=== PATIENT | male | born 1970 | race Two or more races ===

== ENCOUNTER 2023-02-14 00:20 | Day surgery (SDC) | payer OTHER ==
[2023-02-14 00:29] VITALS: BMI 27.2
[2023-02-14] MEDS ORDERED: SODIUM CHLORIDE 0.9% 500 ML INFUS.BAG IV ONE (00:50)
[2023-02-14] MEDS ORDERED: KETOROLAC TROMETHAMINE 15 MG/ML VIAL IVPUSH ONE (00:51)
[2023-02-14] MEDS ORDERED: KETOROLAC TROMETHAMINE 15 MG/ML VIAL ONE (00:58)
[2023-02-14] MEDS ORDERED: ONDANSETRON 4 MG/2 ML VIAL IVPUSH ONE (01:10)
[2023-02-14 01:13] LABS: BASO % 0.5 % (0-2.0); EOS % 3.2 % (0-4.5); HEMATOCRIT 43.3 % (35.4-49); HEMOGLOBIN 14.9 GM/dL (11.7-16.9); LYMPH % 29.2 % (8-40); MCH 30.7 pg (25.7-33.7); MCHC 34.4 g/dl (32.0-35.9); MEAN CELL VOLUME 89.2 fl (80-96); MONO % 7.4 % (3.8-10.2); NEUT % 59.7 % (42.8-82.8); PLATELET COUNT 320 10^3/uL (134-434); RBC 4.85 M/mm3 (4.00-5.60); RDW 12.8 % (11.9-15.9); WHITE BLOOD COUNT 10.2 K/mm3 (4.0-10.0)
[2023-02-14] MEDS ORDERED: ONDANSETRON 4 MG/2 ML VIAL ONE (01:13)
[2023-02-14] MEDS ORDERED: ONDANSETRON *ODT* 4 MG TABLET ONE (01:14)
[2023-02-14 01:15] LABS: EPI CELLS 6 /uL (0-25.1); HYALINE CASTS 0 /uL (0-3.1); URINE APPEARANCE CLEAR; URINE BACTERIA 8 /uL (0-1359); URINE BILIRUBIN NEGATIVE (NEGATIVE); URINE COLOR YELLOW; URINE GLUCOSE (UA) NEGATIVE (NEGATIVE); URINE KETONE NEGATIVE (NEGATIVE); URINE LEUK ESTERASE NEGATIVE (NEGATIVE); URINE NITRITE NEGATIVE (NEGATIVE); URINE PROTEIN NEGATIVE (NEGATIVE); URINE RBC 1818 /uL (0-23.9); URINE UROBILINOGEN 0.2 mg/dL (0.2-1.0); URINE WBC 13 /uL (0-25.8)
[2023-02-14 01:34] LABS: POTASSIUM 4.7 mmol/L (3.5-5.1)
[2023-02-14 01:36] LABS: CALCIUM 8.9 mg/dL (8.5-10.1)
[2023-02-14 01:37] LABS: ALBUMIN 4.1 g/dl (3.4-5.0); BLOOD UREA NITROGEN 13.3 mg/dL (7-18)
[2023-02-14] MEDS ORDERED: ONDANSETRON *ODT* 4 MG TABLET SL ONE (01:38)
[2023-02-14 01:40] LABS: CREATININE 1.1 mg/dL (0.55-1.3)
[2023-02-14 01:41] LABS: BILIRUBIN,TOTAL 0.4 mg/dL (0.2-1)
[2023-02-14 01:42] LABS: TOT PROT 7.6 g/dl (6.4-8.2)
[2023-02-14] MEDS ORDERED: TAMSULOSIN HCL 0.4 MG CAP PO ONE (02:05)
[2023-02-14] MEDS ORDERED: TAMSULOSIN HCL 0.4 MG CAP ONE ×2 (02:09→08:42)
[2023-02-14] MEDS ORDERED: ACETAMINOPHEN 325 MG TABLET (FP) PO PRN (04:53)
[2023-02-14] MEDS ORDERED: SODIUM CHLORIDE 0.45% 1,000 ML IV SCH (05:00)
[2023-02-14] MEDS ORDERED: TAMSULOSIN HCL 0.4 MG CAP PO SCH (08:30)
[2023-02-14] MEDS ORDERED: CEFTRIAXONE 1 GM in DEXTROSE 5%-WATER - 50 ML IVPB SCH (10:00)
[2023-02-14] MEDS ORDERED: amLODIPine BESYLATE 5 MG TABLET (FP) PO SCH (10:00)
[2023-02-14] MEDS ORDERED: CEFTRIAXONE 1 GM/50 ML BAG ONE (10:13)
[2023-02-14] MEDS ORDERED: amLODIPine BESYLATE 5 MG TABLET (FP) ONE (10:13)
[2023-02-14 10:50] LABS: BASO % 0.2 % (0-2.0); EOS % 0.8 % (0-4.5); HEMATOCRIT 39.3 % (35.4-49); HEMOGLOBIN 13.9 GM/dL (11.7-16.9); MCH 31.2 pg (25.7-33.7); MCHC 35.4 g/dl (32.0-35.9); MEAN CELL VOLUME 88.2 fl (80-96); MEAN PLT VOLUME 7.9 fl (7.5-11.1); MONO % 5.4 % (3.8-10.2); NEUT % 74.6 % (42.8-82.8); PLATELET COUNT 247 10^3/uL (134-434); RBC 4.46 M/mm3 (4.00-5.60); RDW 13.1 % (11.9-15.9); WHITE BLOOD COUNT 8.1 K/mm3 (4.0-10.0)
[2023-02-14 10:53] LABS: INR 1.2 (0.83-1.09); PROTHROMBIN TIME (PATIENT) 13.9 SEC (9.7-13.0)
[2023-02-14 11:06] LABS: POTASSIUM 4.1 mmol/L (3.5-5.1)
[2023-02-14 11:11] LABS: ALBUMIN 3.7 g/dl (3.4-5.0); BLOOD UREA NITROGEN 10.7 mg/dL (7-18); CALCIUM 8.5 mg/dL (8.5-10.1); MAGNESIUM 2.2 mg/dL (1.8-2.4)
[2023-02-14 11:14] LABS: CREATININE 0.8 mg/dL (0.55-1.3); PHOSPHOROUS 3.1 mg/dL (2.5-4.9)
[2023-02-14 11:15] LABS: BILIRUBIN,TOTAL 0.5 mg/dL (0.2-1); TOT PROT 6.8 g/dl (6.4-8.2)
[2023-02-14] MEDS ORDERED: MIDAZOLAM HCL 2 MG/2 ML SINGLE DOSE VIAL ONE (16:26)
[2023-02-14] MEDS ORDERED: PROPOFOL 40 ML ONE (16:26)
[2023-02-14] MEDS ORDERED: LACTATED RINGERS SOLUTION 1,000 ML IV SCH (17:00)
[2023-02-14] MEDS ORDERED: FENTANYL CITRATE/PF 50 MCG/ML VIAL ONE ×3 (17:05→18:24)
[2023-02-14] MEDS ORDERED: GENTAMICIN SO4 80 MG/2 ML VIAL ONE (17:15)
[2023-02-14] MEDS ORDERED: ceFAZolin SODIUM 1 GM VIAL IVPB ONE (17:18)
[2023-02-14] MEDS ORDERED: GENTAMICIN SO4 80 MG/2 ML VIAL IVPB ONE (17:18)
[2023-02-14 19:33] VITALS: RESP 18
[2023-02-14 19:50] VITALS: BP 128/90; PULSE 89; TEMP 97.6
[2023-02-24 21:06] LABS: CA OXALATE MONOHYDR. 100 % (.); SIZE 3x2 mm (.); WEIGHT 22 mg (.)
== END 2023-02-14 19:40 | disposition home or self-care (01) ==
LOC: JER 00:20 → JASUSAT 04:21 → UNDOADMOB 04:41 → JERBED 04:41 → JASUSAT 19:40
PROVIDERS: ATTEND Student in an Organized Health Care Education/Training Program
PROC: 0TC68ZZ Extirpation of Matter from Right Ureter, Via Natural or Artificial Opening Endoscopic (ICD-10-PCS; principal; 2023-02-14 17:00)
PROC: 0T768DZ Dilation of Right Ureter with Intraluminal Device, Via Natural or Artificial Opening Endoscopic (ICD-10-PCS; 2023-02-14 17:00)
DX: N13.2 Hydronephrosis with renal and ureteral calculous obstruction (principal)
CPT/HCPCS: 36415; 74176-TC; 76000-TC-FY; 80053; 81003; 82360; 83735; 84100; 84484; 85025; 85610; 86850; 86900; 86901; 88300-TC; 93005; 93010; 94760; 99285-25; C1758; C2617; Q0162

== ENCOUNTER 2023-11-14 05:24 | Day surgery (SDC) | payer OTHER ==
[2023-11-09 14:50] VITALS: BMI 26.5
[2023-11-14] MEDS ORDERED: MIDAZOLAM HCL 2 MG/2 ML SINGLE DOSE VIAL ONE (15:21)
[2023-11-14 16:02] VITALS: TEMP 97.5
[2023-11-14 16:44] VITALS: BP 136/91; PULSE 79; RESP 18
== END 2023-11-14 16:50 | disposition home or self-care (01) ==
LOC: JASU-SURG 05:24
PROVIDERS: ATTEND Urology
PROC: 0TF4XZZ Fragmentation in Left Kidney Pelvis, External Approach (ICD-10-PCS; principal; 2023-11-14 15:36)
DX: N20.0 Calculus of kidney (principal)